=== PATIENT | male | born 1980 | race African-American/Black ===

== ENCOUNTER 2019-07-07 04:00 | Inpatient (IN) | payer OTHER ==
[~2019-07-07] VITALS: Ht 167.6 cm; Wt 113.4 kg
[~2019-07-07 04:00] MED LIST: ADVIL100 M2; ALEVE220 M1; AMOXICILLIN500 M1 PO; CARVEDILOL3.125 MG PO; COZAAR 25 MG TA25 M1 PO; FLEXERIL PO; FOLIC ACID1 MG PO; LASIX 20 MG TAB20 MG PO; LISINOPRIL2.5 MG PO; NAPROSYN500 MG PO; NOHOMEMEDICATIONS; NORCO 5-325 TA1 EACH PO; NORVASC 5 MG TAB5 MG PO; PENICILLIN VK500 M1 PO; PENICILLIN VK500 MG PO; SPIRONOLACTONE25 M1 PO; SPIRONOLACTONE25 MG PO; VEETIDS 250MG250 M1 PO; ZOFRAN ODT4 MG PO
[2019-07-07 04:01] VITALS: BP 181/122
[2019-07-07 04:21] LABS: BE(vivo) -3.6 mmol/L (-2 to +3); HCO3 20.2 mmol/L (22.0-26.0); PCO2 33.2 mmHg (35.0-45.0); PO2 61.4 mmHg (80.0-100.0); pH 7.402 (7.360-7.450); sO2 91.9 % (92.0-98.0)
[2019-07-07 04:40] LABS: ABSOLUTE NEUTROPHILS 9.3 thou/uL (1.4-8.2); BASOPHILS 0.5 % (0.0-2.0); EOSINOPHILS 1.1 % (0.0-3.0); HEMATOCRIT 41.3 % (42.0-52.0); HEMOGLOBIN 13.4 gm/dL (14.0-18.0); LYMPHOCYTES 25.5 % (24.0-44.0); MCH 28.5 pg (26.0-34.0); MCHC 32.3 g/dL (28.0-37.0); MCV 88.2 fL (80.0-100.0); MONOCYTES 4.1 % (1.0-8.0); PLATELET COUNT 248 thou/uL (150-400); POLYS 68.8 % (36.0-66.0); RBC 4.68 mil/uL (4.50-6.00); RDW 15.4 % (10.5-14.5); WBC 13.6 thou/uL (4.0-11.0)
[2019-07-07] MEDS ORDERED: POTASSIUM20 PO (04:44)
[2019-07-07] MEDS ORDERED: ASPIR 8181 MG PO (04:45)
[2019-07-07 04:48] LABS: ANION GAP 13 mmol/L (7-16); BUN 17 mg/dL (7-18); CALCIUM 8.7 mg/dL (8.5-10.1); CHLORIDE 107 mmol/L (98-107); CO2 22 mmol/L (21-32); CREATININE 1.3 mg/dL (0.7-1.3); GLUCOSE 132 mg/dL (74-106); POTASSIUM 3.8 mmol/L (3.5-5.1); SODIUM 142 mmol/L (136-145)
[2019-07-07 04:58] LABS: ALBUMIN 3.5 g/dL (3.4-5.0); MAGNESIUM 1.9 mg/dL (1.8-2.4); SGOT 38 U/L (15-37); SGPT 41 U/L (30-65); TOTAL BILIRUBIN 0.2 mg/dL (<0.1-1.0); TOTAL PROTEIN 7.3 g/dL (6.4-8.2); TROPONIN-I <0.06 ng/mL (<0.06)
[2019-07-07 05:04] LABS: AMP/METHAMP Negative (Negative); BARBITURATES Negative (Negative); BENZODIAZEPINES Negative (Negative); COCAINE Negative (Negative); METHADONE Negative (Negative); OPIATES POSITIVE (Negative); PCP POSITIVE (Negative)
[2019-07-07 05:45] VITALS: BP 126/80
[2019-07-07 05:56] LABS: APTT 29.3 Seconds (24.5-32.8)
[2019-07-07 07:33] VITALS: BP 103/49
--- NOTE | 2019-07-07 08:42 | NUR ---
PATIENT ARRIVED ON UNIT AT 0600. USED FACILITIES THEN SETTLED INTO BED. PLACED ON TELEMETRY. CHART MADE, PAPERWORK SIGNED BY PATIENT. INITIAL TELEMETRY STRIP ON CHART.
--- NOTE | 2019-07-07 08:45 | EKG ---
[address] [place] [address] ELECTROCARDIOGRAM REPORT Name: MYRON HARKINSYolanda Guerrero Room #: 217-P ADM IN M.R.#: [id number] Admission: 07/07/19 Attend Phys: Ledy Cervantes MD Discharge: Date of : 76 Report #: [id number] THIS REPORT FOR: //name// [facility] ED Test Date: 2019-07-07 Test Time: 04:08:34 Pat Name: DARBY HARKINS Department: Room: 217 Gender: M Registered Associate: TRU : 1980 Requested By: Derrick Elkins Order Number: [id number] MD: Tristen Groves Measurements Intervals [place] Rate: 127 P: 25 SD: 159 QRS: -21 QRSD: 101 T: 158 QT: 317 QTc: 461 Interpretive Statements Sinus tachycardia Borderline left axis deviation Nonspecific T abnormalities, lateral leads Compared to ECG 06/27/2018 15:30:05 T-wave abnormality now present Electronically Signed On 07-07-2019 8:45:28 CDT by Tristen Grvoes [email or web address] <ELECTRONICALLY SIGNED> By: Tristen Groves MD, [facility] 07/07/19 0845 0408 Tristen Groves MD, [facility] /EPI
[2019-07-07 10:55] VITALS: BP 129/65
--- NOTE | 2019-07-07 11:10 | 2DMMODE ---
[facility] [address] [place] [address] 2 D/M-MODE ECHOCARDIOGRAM Name: DARBY HARKINS Room #: 217-P [facility] IN ..#: [id number] Admission: 07/07/19 Attend Phys: Ledy Cervantes, Discharge: Date of : 76 Report #: [id number] THIS REPORT FOR: //name// APPROVED REPORT Study performed: 07/07/2019 09:36:28 EXAM: Comprehensive 2D, Doppler, and color-flow Echocardiogram Patient Location: Bedside Room #: [facility] Status: routine BSA: 2.20 HR: 95 bpm BP: 103/49 mmHg Rhythm: NSR Other Information Study Quality: Adequate Technically limited study due to body habitus. Indications Congestive Heart Failure Atrial Fibrillation Pacemaker Hypertension/HDD Echo Enhancing Agent Indication: Endocardial border delineation Agent(s) / Amount(s) Used: Optison 3 cc 2D Dimensions RVDd: 32.48 mm IVSd: 10.43 (7-11mm) LVOT Diam: 22.29 (18-24mm) LVDd: 68.42 mm PWd: 11.70 (7-11mm) Ascending Ao: 31.15 (22-36mm) LVDs: 60.36 (25-40mm) Aortic Root: 31.46 mm IVC: 13.00 mm Volumes Left Atrial Volume (Systole) Single Plane 4CH: 77.17 mL Single Plane 2CH: 46.11 mL LA ESV Index: 29.00 mL/m2 Aortic Valve [facility] [employer] [place] [address] 2 D/M-MODE ECHOCARDIOGRAM Name: DARBY HARKINS Room #: 217-P [facility] IN ..#: [id number] Admission: 07/07/19 Attend Phys: Ledy Cervantes, Discharge: Date of : 76 Report #: [id number] AoV Peak Imtiaz.: 1.20 m/s AO Peak Gr.: 5.71 mmHg LVOT Max P.71 mmHg LVOT Max V: 0.65 m/s XENIA Vmax: 2.14 cm2 Mitral Valve MV Decel. Time: 80.04 ms MV E Max Imtiaz.: 1.06 m/s IVRT: 100.35 ms Pulmonary Valve PV Peak Imtiaz.: 0.92 m/s PV Peak Gr.: 3.40 mmHg Pulmonary Vein P Vein S: 0.41 m/s P Vein A: 0.34 m/s P Vein D: 0.32 m/s P Vein A Dur.: 134.9 msec P Vein S/D Ratio: 1.28 Tricuspid Valve TR Peak Imtiaz.: 2.24 m/s RAP Estimate: 5.00 mmHg TR Peak Gr.: 20.01 mmHg PA Pressure: 25.00 mmHg Left Ventricle Left ventricle is moderately dilated. There is normal left ventricular wall thickness. Left ventricular ejection fraction is severely decreased. LVEF is 20%. This study is not technically sufficient to allow evaluation of the LV diastolic function. Right Ventricle The right ventricle is normal size. The right ventricular systolic function is normal. Atria The left atrium size is normal. The right atrium size is normal. Aortic Valve The aortic valve is normal in structure. No aortic regurgitation is present. There is no aortic valvular stenosis. Mitral Valve The mitral valve is normal in structure. Mild mitral regurgitation. No evidence of mitral valve stenosis. Tricuspid Valve [facility] [email or web address] [address] 2 D/M-MODE ECHOCARDIOGRAM Name: DARBY HARKINS Room #: 217-P [facility] IN .R.#: [id number] Admission: 07/07/19 Attend Phys: Ledy Cervantes, Discharge: Date of : 76 Report #: [id number] The tricuspid valve is normal in structure. trace to mild tricuspid regurgitation. PAP is estimated at 25 mmHg. Pulmonic Valve The pulmonary valve is normal in structure. Trace pulmonic regurgitation. Great Vessels The aortic root is normal in size. IVC is normal in size and collapses >50% with inspiration. Pericardium There is no pericardial effusion. <Conclusion> Left ventricular ejection fraction is severely decreased. LVEF is 20%. Left ventricle is moderately dilated. The aortic valve is normal in structure. No aortic regurgitation or stenosis. The mitral valve is normal in structure. Mild mitral regurgitation. trace to mild tricuspid regurgitation. Pulmonary artery pressure estimated at 25 mmHg. There is no pericardial effusion. <ELECTRONICALLY SIGNED> By: Tristen Groves MD, [facility] 07/07/19 1109 08 Tristen Groves MD, FACC /INF
--- NOTE | 2019-07-07 12:01 | NUR ---
met with patient who reports he does not have a PCP. He was recently at [facility] and saw Dr Cohen at [facility]. He reports he planned f.u care but not pursued. Gave patient [facility] resource guide reviewing free health clinics. patient reports he went to one off [facility] and even with the discount he could not afford the medications. Patient reports he has completed a [place] Medicaid application and applied for disability. referral to [employer] as he has no health insurance. Patient does not work and currently staying with his mother. [employer] following for dc needs.
--- NOTE | 2019-07-07 13:04 | NUR ---
FAXED FACE SHEET TO ERICA AT [facility] TO HELP WITH MEDICAID APPLICATION.
--- NOTE | 2019-07-07 14:17 | NUR ---
VSS REMAINS NSR TO ST DEPENDING ON ACTIVITY 85-100, LUNGS DIMINISHED AND O2 SAT RA IS 97%. UP IN ROOM WITHOUT DIFFICULTY. WILL CONTINUE TO MONITER AND CARE FOR PT PER PLAN OF CARE
[2019-07-07 15:18] VITALS: BP 94/60
[2019-07-07 19:54] VITALS: BP 121/71
[2019-07-08] VITALS (8 sets, daily range): BP systolic 108–128; BP diastolic 65–88
[2019-07-08 00:06] LABS: GLYCOHEMOGLOBIN (HGB A1C) 5.9 % (4.8-5.6)
--- NOTE | 2019-07-08 04:38 | NUR ---
ASSUMED PT CARE TA 1900 WITH NO SIGN OF DISTRESS NOTED. PT IS ALERT AND ORIENTED. PT IS AMBULATORY. ASSESSMENT COMPLETED SCHEDULED MEDS ADMINISTERED TO PT. PT IS STABLE. CONTINUE TO MONITOR.
[2019-07-08 05:34] LABS: CALCIUM 8.8 mg/dL (8.5-10.1); CREATININE 1.3 mg/dL (0.7-1.3); POTASSIUM 3.7 mmol/L (3.5-5.1)
[2019-07-08 05:35] LABS: CHOLESTEROL 122 mg/dL (<200); HDL CHOLESTEROL 40 mg/dL (>40); LDL CHOLESTEROL 67 mg/dL (<100); TC:HDL 3.1 Ratio (Not establshd); TRIGLYCERIDE 79 mg/dL (<150); VLDL 16 mg/dL (<40)
[2019-07-08 05:44] LABS: SERUM ASSESSMENT Clear
--- NOTE | 2019-07-08 14:58 | NUR ---
VSS REMAINS NSR TO ST 90-110, DEPENDING ON ACTIVITY. UP IN HALLS WITH HR UP, SOME ODONNELL. NO C/O CHEST PAIN. LUNGS CLEAR AND DIMINISHED, O2 SAT RA IS 94%. WILL CONTINUE TO MONITER AND CARE FOR PT PER PLAN OF CARE
[2019-07-09 04:45] VITALS: BP 109/66
--- NOTE | 2019-07-09 05:16 | NUR ---
ASSUMED PT CARE AT 1900 WITH NO SIGN OF DISTRESS NOTED IN PT. FAMILY AT BEDSIDE. PT IS ALERT AND ORIENTED. PT IS AMBULATORY. ASSESSMENT COMPLETED AND DOUMENTED. SCHEDULED MEDS AMDINISTERED TO PT. NO FURTHER NEEDS AT THIS TIME. CONTINUE TO MONITOR PATIENT.
[2019-07-09 07:19] VITALS: BP 112/81
[2019-07-09 08:24] LABS: CALCIUM 9.2 mg/dL (8.5-10.1); CREATININE 1.5 mg/dL (0.7-1.3); POTASSIUM 3.9 mmol/L (3.5-5.1)
--- NOTE | 2019-07-09 09:47 | NUR ---
Assess due to class III exteme obesity BMI >40. Admit with acute on chronic CHF. Hx polysubstance abuse (PCP). On diuretic therapy. Lipids wnl. Pt able to state high sodium foods and has been trying to avoid these and eating more fresh vegetables. Receptive to diet education tips for heart healthy diet. Low nutrition risk
[2019-07-09] MEDS ORDERED: COZAAR 25 MG TA25 M1 PO (10:03)
[2019-07-09] MEDS ORDERED: COREG6.25 MG PO (10:03)
[2019-07-09] MEDS ORDERED: SPIRONOLACTONE25 MG PO (10:04)
[2019-07-09] MEDS ORDERED: POTASSIUM20 PO (10:04)
[2019-07-09] MEDS ORDERED: ASPIR 8181 MG PO (10:04)
[2019-07-09] MEDS ORDERED: FOLIC ACID1 MG PO (10:05)
[2019-07-09] MEDS ORDERED: TORSEMIDE20 MG PO (10:05)
[2019-07-09 10:28] VITALS: BP 116/81
--- NOTE | 2019-07-09 11:15 | NUR ---
ASSUMED CARE AT SHIFT CHANGE, ALERT AND ORIENTED X4, AND DENIES ANY DISCOMFORT. MEDICATION AND DISCHARGE INSTRUCTION. PATIENT VERBALIZED UNDERSTANDING.
--- NOTE | 2019-07-09 12:37 | NUR ---
Patient to dc home today. vouched for scripts in [facility] in amount of $66 [facility]. he plans to f/u with Dr Cohen at [facility] and possible [facility] at [place]. Patient completed medicaid application with [employer]. no further needs
== END 2019-07-09 12:32 | disposition home or self-care (01) | DRG 291 ==
LOC: ER 04:00 → EROBS 05:34 → 2N 05:34
PROVIDERS: Emergency Medicine; Nurse Practitioner; Nurse Practitioner Adult Health; ADMIT Internal Medicine
PROC: 4B02XTZ Measurement of Cardiac Defibrillator, External Approach (ICD-10-PCS; principal; 2019-07-07)
DX: I11.0 Hypertensive heart disease with heart failure (principal); J96.00 Acute respiratory failure, unspecified whether with hypoxia or hypercapnia; Z68.41 Body mass index [BMI] 40.0-44.9, adult; I47.1 Supraventricular tachycardia; I50.23 Acute on chronic systolic (congestive) heart failure; E66.01 Morbid (severe) obesity due to excess calories; I48.0 Paroxysmal atrial fibrillation; I42.9 Cardiomyopathy, unspecified; F16.10 Hallucinogen abuse, uncomplicated; I08.1 Rheumatic disorders of both mitral and tricuspid valves; F10.10 Alcohol abuse, uncomplicated; F17.210 Nicotine dependence, cigarettes, uncomplicated; Z79.82 Long term (current) use of aspirin; Z79.899 Other long term (current) drug therapy; Z95.810 Presence of automatic (implantable) cardiac defibrillator; Z91.14 Patient's other noncompliance with medication regimen; Z71.6 Tobacco abuse counseling; Z71.41 Alcohol abuse counseling and surveillance of alcoholic; Z71.51 Drug abuse counseling and surveillance of drug abuser
CPT/HCPCS: 10081

== ENCOUNTER 2020-07-15 06:13 | Emergency (ER) | payer OTHER ==
[~2020-07-15] VITALS: Ht 177.8 cm; Wt 127.0 kg
[~2020-07-15 06:13] MED LIST changes: +ASPIR 8181 MG PO; +COREG6.25 MG PO; +POTASSIUM20 PO; +TORSEMIDE20 MG PO
[2020-07-15 07:16] LABS: ABSOLUTE NEUTROPHILS 6.6 thou/uL (1.4-8.2); BASOPHILS 0.9 % (0.0-2.0); EOSINOPHILS 1.2 % (0.0-3.0); HEMOGLOBIN 12.5 gm/dL (14.0-18.0); LYMPHOCYTES 25.7 % (24.0-44.0); MCH 29.7 pg (26.0-34.0); MCHC 33.7 g/dL (28.0-37.0); MCV 88.1 fL (80.0-100.0); MONOCYTES 4.4 % (1.0-8.0); PLATELET COUNT 216 thou/uL (150-400); POLYS 67.8 % (36.0-66.0); RDW 15.6 % (10.5-14.5); WBC 9.7 thou/uL (4.0-11.0)
[2020-07-15 07:26] LABS: ANION GAP 11 mmol/L (7-16); BUN 19 mg/dL (7-18); CALCIUM 8.5 mg/dL (8.5-10.1); CHLORIDE 106 mmol/L (98-107); CO2 23 mmol/L (21-32); CREATININE 1.2 mg/dL (0.7-1.3); GLUCOSE 97 mg/dL (74-106); POTASSIUM 3.7 mmol/L (3.5-5.1); SODIUM 140 mmol/L (136-145)
[2020-07-15 07:34] LABS: TROPONIN-I <0.06 ng/mL (<0.06)
--- NOTE | 2020-07-15 07:56 | EKG ---
[facility] [place] [address] ELECTROCARDIOGRAM REPORT Name: DARBY HARKINS Room #: [facility]#: [id number] Admission: 07/15/20 Attend Phys: Discharge: Date of : 76 Report #: [id number] THIS REPORT FOR: cc: Deedee Fermin MD, Nidal MD Lundgren,Tristen Jim MD [facility] ~ THIS REPORT FOR: //name// [facility] ED Test Date: 2020-07-15 Test Time: 06:32:52 Pat Name: DARBY HARKINS Department: Room: Gender: M Clock Maker: lidia sky : 1980 Requested By: Luis Sun Order Number: [id number] MD: Tristen Groves Measurements Intervals [place] Rate: 103 P: 45 [place]: 192 QRS: -22 QRSD: 102 T: QT: 384 QTc: 503 Interpretive Statements Sinus tachycardia Borderline left axis deviation Nonspecific T wave abnormality Prolonged QT interval Compared to ECG 07/07/2019 04:08:34 Prolonged QT interval now present Electronically Signed On 07-15-2020 7:55:49 CDT by Tristen Groves [email or web address] <ELECTRONICALLY SIGNED> By: Tristen Groves MD, FACC 07/15/20 0755 0632 0632 Tristen Groves MD, [facility] /EPI
[2020-07-15] MEDS ORDERED: COREG6.25 MG PO (08:09)
[2020-07-15] MEDS ORDERED: TORSEMIDE20 MG PO (08:09)
[2020-07-15] MEDS ORDERED: POTASSIUM20 PO (08:09)
[2020-07-15] MEDS ORDERED: COZAAR 25 MG TA25 M1 PO (08:09)
[2020-07-15] MEDS ORDERED: SPIRONOLACTONE25 MG PO (08:09)
[2020-07-15 09:47] VITALS: BP 104/74
== END 2020-07-15 09:48 | disposition home or self-care (01) ==
LOC: ER 06:13
PROVIDERS: Emergency Medicine
DX: I11.0 Hypertensive heart disease with heart failure (principal); I50.9 Heart failure, unspecified; F17.210 Nicotine dependence, cigarettes, uncomplicated; Z95.0 Presence of cardiac pacemaker; Z79.82 Long term (current) use of aspirin; Z79.899 Other long term (current) drug therapy

== ENCOUNTER 2020-10-16 18:40 | Emergency (ER) | payer OTHER ==
[~2020-10-16] VITALS: Ht 170.2 cm; Wt 113.4 kg
[2020-10-16 19:54] VITALS: BP 126/85
--- NOTE | 2020-10-18 09:49 | EKG ---
[address] [employer] [place] [address] ELECTROCARDIOGRAM REPORT Name: DARBY HARKINS [id number] Admission: 10/16/20 Attend Phys: Discharge: 10/16/20 Date of : 76 Report #: [id number] [facility] ED Test Date: 2020-10-16 Test Time: 19:13:16 Pat Name: DARBY HARKINS Department: Room: Gender: M Coal Weigher: [id number] : 1980 Requested By: Marcus Magaña Order Number: [id number] MD: Lane Campbell Measurements Intervals [place] Rate: 90 P: 49 RI: 202 QRS: -31 QRSD: 106 T: 257 QT: 402 QTc: 492 Interpretive Statements Sinus rhythm Borderline prolonged RI interval Left atrial enlargement Left ventricular hypertrophy Nonspecific T abnormalities, lateral leads Borderline prolonged QT interval Compared to ECG 07/15/2020 06:32:52 Atrial abnormality now present Left ventricular hypertrophy now present Sinus tachycardia no longer present T-wave abnormality still present Electronically Signed On 10-18-2020 9:49:13 HEAD WAITER/WAITRESS by Lane Campbell [email or web address] <ELECTRONICALLY SIGNED> By: Lane Campbell MD, FACC 10/18/20 [address] MD, [facility] /EPI
== END 2020-10-16 20:00 | disposition left against medical advice (07) ==
LOC: ER 18:40
DX: R07.9 Chest pain, unspecified (principal); R60.0 Localized edema; J02.9 Acute pharyngitis, unspecified; I50.9 Heart failure, unspecified; I11.0 Hypertensive heart disease with heart failure; F17.210 Nicotine dependence, cigarettes, uncomplicated

== ENCOUNTER 2021-04-18 15:32 | Emergency (ER) | payer OTHER ==
[~2021-04-18] VITALS: Ht 170.2 cm; Wt 113.4 kg
[2021-04-18] MEDS ORDERED: DORYX MPC120 MG PO (17:09)
[2021-04-18] MEDS ORDERED: PROAIR HFA8.5 GM INH (17:09)
[2021-04-18 17:10] LABS: ABSOLUTE NEUTROPHILS 7.7 thou/uL (1.4-8.2); BASOPHILS 1.3 % (0.0-2.0); EOSINOPHILS 1.3 % (0.0-3.0); HEMATOCRIT 36.5 % (42.0-52.0); HEMOGLOBIN 12.1 gm/dL (14.0-18.0); LYMPHOCYTES 20.6 % (24.0-44.0); MCHC 33.1 g/dL (28.0-37.0); MCV 87.6 fL (80.0-100.0); MONOCYTES 4.4 % (1.0-8.0); PLATELET COUNT 251 thou/uL (150-400); POLYS 72.4 % (36.0-66.0); RBC 4.17 mil/uL (4.50-6.00); WBC 10.6 thou/uL (4.0-11.0)
[2021-04-18 17:20] LABS: ANION GAP 9 mmol/L (7-16); BUN 17 mg/dL (7-18); CALCIUM 8.8 mg/dL (8.5-10.1); CHLORIDE 110 mmol/L (98-107); CO2 24 mmol/L (21-32); CREATININE 1.4 mg/dL (0.7-1.3); GLUCOSE 94 mg/dL (74-106); POTASSIUM 4.2 mmol/L (3.5-5.1); SODIUM 143 mmol/L (136-145)
[2021-04-18 17:27] LABS: ALBUMIN 3.2 g/dL (3.4-5.0); SGOT 22 U/L (15-37); SGPT 25 U/L (16-63); TOTAL BILIRUBIN 0.5 mg/dL (0.2-1.0); TROPONIN-I <0.06 ng/mL (<0.06)
[2021-04-18] MEDS ORDERED: TESSALON PERLE100 MG PO (19:09)
[2021-04-18] MEDS ORDERED: DEMADEX20 MG PO (19:09)
[2021-04-18 19:13] VITALS: BP 136/83
--- NOTE | 2021-04-19 07:17 | EKG ---
[place] [address] [place] [address] ELECTROCARDIOGRAM REPORT Name: DARBY HARKINS Yolanda [id number] Admission: 04/18/21 Attend Phys: Discharge: 04/18/21 Date of : 76 Report #: [id number] [facility] ED Test Date: 2021-04-18 Test Time: 15:49:07 Pat Name: DARBY HARKINS Department: Room: Gender: M Clean Room Operator: [place] : 1980 Requested By: Nima Estrada Order Number: [id number] MD: Lane Campbell Measurements Intervals [place] Rate: 97 P: 54 [place]: 205 QRS: -30 QRSD: 105 T: 88 QT: 402 QTc: 511 Interpretive Statements Sinus rhythm Prolonged [place] interval Probable left atrial enlargement Left axis deviation Nonspecific T abnormalities, lateral leads Prolonged QT interval Compared to ECG 12/02/2020 17:28:32 First degree AV block now present Left-axis deviation now present Sinus tachycardia no longer present T-wave abnormality still present Electronically Signed On 04-19-2021 7:17:[address] Campbell [email or web address] <ELECTRONICALLY SIGNED> By: Lane Campbell MD, FAC 04/19/[address] MD, [facility] /EPI
== END 2021-04-18 19:13 | disposition home or self-care (01) ==
LOC: ER 15:32
PROVIDERS: Nurse Practitioner
DX: R06.00 Dyspnea, unspecified (principal); Z20.822 Contact with and (suspected) exposure to COVID-19; R05 Cough; I11.0 Hypertensive heart disease with heart failure; I50.9 Heart failure, unspecified; F32.9 Major depressive disorder, single episode, unspecified; F41.9 Anxiety disorder, unspecified; F17.210 Nicotine dependence, cigarettes, uncomplicated; Z95.0 Presence of cardiac pacemaker; Z79.899 Other long term (current) drug therapy; Z79.82 Long term (current) use of aspirin; Z79.2 Long term (current) use of antibiotics

== ENCOUNTER 2021-05-20 14:20 | Emergency (ER) | payer OTHER ==
[~2021-05-20] VITALS: Ht 167.6 cm; Wt 131.1 kg
[~2021-05-20 14:20] MED LIST changes: +DEMADEX20 MG PO; +DORYX MPC120 MG PO; +PROAIR HFA8.5 GM INH; +TESSALON PERLE100 MG PO
[2021-05-20 14:49] VITALS: BP 120/78
== END 2021-05-20 15:20 | disposition home or self-care (01) ==
LOC: ER 14:20
DX: U07.1 COVID-19 (principal); I11.0 Hypertensive heart disease with heart failure; I50.9 Heart failure, unspecified; F41.9 Anxiety disorder, unspecified; F32.9 Major depressive disorder, single episode, unspecified; F17.210 Nicotine dependence, cigarettes, uncomplicated; Z79.899 Other long term (current) drug therapy

== ENCOUNTER 2021-05-27 12:48 | Emergency (ER) | payer OTHER ==
[~2021-05-27] VITALS: Ht 167.6 cm; Wt 127.0 kg
[2021-05-27 12:50] VITALS: BP 126/55
[2021-05-27] MEDS ORDERED: AZITHROMYCIN 2250 MG PO (14:05)
[2021-05-27] MEDS ORDERED: DECADRON6 MG PO (14:05)
== END 2021-05-27 14:11 | disposition home or self-care (01) ==
LOC: ER 12:48
DX: U07.1 COVID-19 (principal); J12.82 Pneumonia due to coronavirus disease 2019; R04.2 Hemoptysis; I11.0 Hypertensive heart disease with heart failure; I50.9 Heart failure, unspecified; F41.9 Anxiety disorder, unspecified; F32.9 Major depressive disorder, single episode, unspecified; F17.210 Nicotine dependence, cigarettes, uncomplicated; Z79.899 Other long term (current) drug therapy

== ENCOUNTER 2021-10-08 17:57 | Emergency (ER) | payer OTHER ==
[~2021-10-08] VITALS: Ht 170.2 cm; Wt 120.2 kg
[~2021-10-08 17:57] MED LIST changes: +AZITHROMYCIN 2250 MG PO; +DECADRON6 MG PO
[2021-10-08 19:39] LABS: ABSOLUTE NEUTROPHILS 6.6 thou/uL (1.4-8.2); BASOPHILS 0.6 % (0.0-2.0); EOSINOPHILS 2.9 % (0.0-3.0); HEMATOCRIT 41.5 % (42.0-52.0); HEMOGLOBIN 13.9 gm/dL (14.0-18.0); LYMPHOCYTES 17.9 % (24.0-44.0); MCH 30.2 pg (26.0-34.0); MCHC 33.4 g/dL (28.0-37.0); MCV 90.3 fL (80.0-100.0); MONOCYTES 4.8 % (1.0-8.0); PLATELET COUNT 135 thou/uL (150-400); POLYS 73.8 % (36.0-66.0)
[2021-10-08 20:05] LABS: CALCIUM 9.1 mg/dL (8.5-10.1); CREATININE 1.8 mg/dL (0.7-1.3); POTASSIUM 3.6 mmol/L (3.5-5.1)
[2021-10-08 20:15] LABS: ALBUMIN 3.7 g/dL (3.4-5.0); TOTAL BILIRUBIN 0.6 mg/dL (0.2-1.0); TOTAL PROTEIN 7.5 g/dL (6.4-8.2)
[2021-10-08] MEDS ORDERED: TESSALON PERLE100 MG PO (20:55)
[2021-10-08] MEDS ORDERED: PROAIR HFA8.5 GM INH (20:55)
[2021-10-08 21:02] VITALS: BP 128/69
--- NOTE | 2021-10-10 07:20 | EKG ---
[place] [address] [address] [facility] [place] [address] ELECTROCARDIOGRAM REPORT Name: DARBY HARKINS Yolanda [facility] [id number] Admission: 10/08/21 Attend Phys: Discharge: 10/08/21 Date of : 76 Report #: [id number] [facility] ED Test Date: 2021-10-08 Test Time: 19:25:41 Pat Name: DARBY HARKINS Department: Room: Gender: M Guest Service Host: : 1980 Requested By: Yvette Thomas Order Number: [id number] MD: Lane Campbell Measurements Intervals [place] Rate: 82 P: 46 [place]: 210 QRS: -23 QRSD: 112 T: 147 QT: 437 QTc: 511 Interpretive Statements Sinus rhythm Probable left atrial enlargement Borderline intraventricular conduction delay Abnormal R-wave progression, late transition Nonspecific T abnormalities, lateral leads Compared to ECG 04/18/2021 15:49:07 Left-axis deviation no longer present T-wave abnormality still present Electronically Signed On 10-10-2021 7:20:[address] Campbell [email or web address] <ELECTRONICALLY SIGNED> By: Lane Campbell MD, FAC 10/10/[address] MD, [facility] /EPI
== END 2021-10-08 21:22 | disposition home or self-care (01) ==
LOC: ER 17:57
PROVIDERS: Physician Assistant
DX: R05.9 Cough, unspecified (principal); Z20.822 Contact with and (suspected) exposure to COVID-19; R06.02 Shortness of breath; R53.83 Other fatigue; I11.0 Hypertensive heart disease with heart failure; F17.210 Nicotine dependence, cigarettes, uncomplicated; I50.9 Heart failure, unspecified; Z95.0 Presence of cardiac pacemaker